=== PATIENT | female | born 1975 ===

== ENCOUNTER 2019-03-19 16:09 | Emergency (ER) | payer SELFPAY ==
[~2019-03-19] VITALS: Ht 165.1 cm; Wt 63.5 kg
[2019-03-19] MEDS ORDERED: DIAZ5I (16:41)
== END 2019-03-19 16:45 | disposition left against medical advice (07) ==
LOC: ER 16:09
DX: Z53.21 Procedure and treatment not carried out due to patient leaving prior to being seen by health care provider (principal)